=== PATIENT | male | born 1935 | race African-American/Black ===

== ENCOUNTER 2019-01-18 14:48 | Inpatient (IN) | payer OTHER | END 2019-01-20 20:45 | disposition home or self-care (01) | LOC: TELE-WESTW 21:51 → ER 14:48 → TELE 18:45 → TELE-WESTW 21:53 | DX: G45.9 Transient cerebral ischemic attack, unspecified (principal); G93.41 Metabolic encephalopathy; N39.0 Urinary tract infection, site not specified; I10 Essential (primary) hypertension; E78.5 Hyperlipidemia, unspecified; E11.9 Type 2 diabetes mellitus without complications; F03.90 Unspecified dementia, unspecified severity, without behavioral disturbance, psychotic disturbance, mood disturbance, and anxiety; E66.3 Overweight ==